=== PATIENT | male | born 1985 | race African-American/Black ===

== ENCOUNTER 2016-11-16 22:30 | Emergency (ER) | payer SELFPAY ==
[~2016-11-16] VITALS: Ht 188 cm; Wt 95.2 kg
[~2016-11-16 22:30] MED LIST: NO MEDICATIONS; PREDNISONE PO; VALTREX PO; VICODIN 5/500 T1 TAB PO
== END 2016-11-16 23:36 | disposition home or self-care (01) ==
LOC: SED 22:30
DX: T63.441A Toxic effect of venom of bees, accidental (unintentional), initial encounter (principal)
CPT/HCPCS: 96372; 99282; J2930